=== PATIENT | female | born 1990 | race Caucasian/White ===

== ENCOUNTER 2021-10-03 17:35 | Emergency (ER) | payer SELFPAY ==
[~2021-10-03] VITALS: Ht 165.1 cm; Wt 53.0 kg
[2021-10-03] MEDS ORDERED: KETOROLAC 60MG/2ML VIAL IM ONE (20:30)
[2021-10-03 20:50] LABS: CLARITY URINE CLEAR (CLEAR); COLOR URINE YELLOW (YELLOW); KETONES URINE NEGATIVE (NEGATIVE); LEUKOCYTE ESTERASE URINE 2+ (NEGATIVE); NITRITE URINE POSITIVE (NEGATIVE); OCCULT BLOOD URINE TRACE (NEGATIVE); PROTEIN URINE NEGATIVE (NEGATIVE); SPECIFIC GRAVITY URINE 1.009 (1.005-1.030); UROBILINOGEN URINE 0.2 E.U./dL (0.2-1.0)
[2021-10-03 21:07] VITALS: BP 123/74
[2021-10-03 21:16] LABS: BASOPHILS % 0.4 % (0.0-2.0); EOSINOPHILS % 0.3 % (0.0-5.0); HEMATOCRIT. 41.1 % (36.0-48.0); HEMOGLOBIN. 13.3 g/dL (12.0-16.0); LYMPHOCYTES % 29.6 % (20.0-50.0); MEAN CORPUSCULAR HEMOGLOBIN 27.7 pg (28.0-32.0); MEAN CORPUSCULAR VOLUME 85.3 fL (81.0-99.0); MEAN PLATELET VOLUME 8.3 fl (7.4-10.4); MONOCYTES % 7.3 % (2.0-8.0); NEUTROPHILS % 62.4 % (40.0-76.0); PLATELET 268 x1000/uL (130-400); RED BLOOD CELL COUNT 4.82 mill/uL (4.2-5.4); RED CELL DISTRIBUTION WIDTH 12.9 % (11.6-14.6)
[2021-10-03 21:22] LABS: CHLORIDE 104 mEq/L (98-107)
[2021-10-03 21:23] LABS: PROTHROMBIN TIME 11.1 sec (9.6-11.0)
[2021-10-03] MEDS ORDERED: CEFTRIAXONE SODIUM 1 G/VIAL IM ONE (22:00)
[2021-10-03] MEDS ORDERED: LIDOCAINE HCL/EPINEPHRINE 1%-EPI 1:100,000 50 ML VIAL INFIL ONE (22:00)
[2021-10-03] MEDS ORDERED: IBUP-2028 MT (22:19)
[2021-10-03] MEDS ORDERED: CEFP200T13 MT (22:19)
== END 2021-10-03 23:24 | disposition home or self-care (01) ==
LOC: ER 17:35
DX: N64.4 Mastodynia (principal); N39.0 Urinary tract infection, site not specified; R53.1 Weakness; R53.83 Other fatigue
CPT/HCPCS: 36415; 71045; 80053; 81003; 81025; 85025; 85610; 86850; 86900; 86901; 96372; 99284; J0696; J1885

== ENCOUNTER 2023-05-17 16:08 | Emergency (ER) | payer MEDICAID, OTHER ==
[~2023-05-17] VITALS: Ht 167.6 cm; Wt 58.6 kg
[~2023-05-17 16:08] MED LIST: CEFP200T13 MT; IBUP-2028 MT
[2023-05-17 16:18] VITALS: TEMP 98.5; O2SAT 99
[2023-05-17 18:00] LABS: CLARITY URINE CLEAR (CLEAR); COLOR URINE YELLOW (YELLOW); GLUCOSE URINE NEGATIVE (NEGATIVE); KETONES URINE TRACE (NEGATIVE); LEUKOCYTE ESTERASE URINE NEGATIVE (NEGATIVE); NITRITE URINE NEGATIVE (NEGATIVE); OCCULT BLOOD URINE NEGATIVE (NEGATIVE); PROTEIN URINE NEGATIVE (NEGATIVE); SPECIFIC GRAVITY URINE 1.017 (1.005-1.030); UROBILINOGEN URINE 0.2 E.U./dL (0.2-1.0)
[2023-05-17 18:28] LABS: BASOPHILS % 0.4 % (0.0-2.0); EOSINOPHILS % 0.6 % (0.0-5.0); HEMATOCRIT. 40.4 % (36.0-48.0); HEMOGLOBIN. 13.4 g/dL (12.0-16.0); LYMPHOCYTES % 25.3 % (20.0-50.0); MEAN CORPUSCULAR HEMOGLOBIN 28.1 pg (28.0-32.0); MEAN CORPUSCULAR HGB CONC 33.2 g/dL (31.0-37.0); MEAN CORPUSCULAR VOLUME 84.7 fL (81.0-99.0); MEAN PLATELET VOLUME 8.5 fl (7.4-10.4); MONOCYTES % 8.1 % (2.0-8.0); NEUTROPHILS % 65.6 % (40.0-76.0); PLATELET 278 x1000/uL (130-400); RED BLOOD CELL COUNT 4.77 mill/uL (4.2-5.4); RED CELL DISTRIBUTION WIDTH 13.4 % (11.6-14.6); WHITE BLOOD COUNT 9.7 x1000/uL (4.5-11.0)
[2023-05-17 18:42] LABS: ALANINE AMINOTRANSFERASE 15 IU/L (10-49); ALBUMIN 5.1 g/dL (3.2-4.8); ASPARTATE AMINOTRANSFERASE 27 IU/L (<34); BILIRUBIN TOTAL 0.7 mg/dL (0.1-1.0); CALCIUM 9.6 mg/dL (8.7-10.4); CARBON DIOXIDE 26 mEq/L (21-32); CHLORIDE 105 mEq/L (98-107); CREATININE 0.8 mg/dL (0.6-1.0); GLUCOSE 95 mg/dL (70-105); PROTEIN TOTAL 8.3 g/dL (6.0-8.3); SODIUM 137 mEq/L (136-145); UREA NITROGEN BLOOD 14 mg/dL (9-23)
[2023-05-17 20:10] VITALS: BP 110/80; PULSE 82; RESP 18
[2023-05-17] MEDS: KETOROLAC 60MG/2ML VIAL IM ONE (20:10)
[2023-05-17] MEDS ORDERED: DOXY100C5 MT (21:18)
[2023-05-17] MEDS ORDERED: METR-167 MT (21:18)
[2023-05-17] MEDS: LIDOCAINE HCL 1% 20ML VIAL (Pyxis) INJ INFIL ONE (21:43)
[2023-05-17] MEDS: CEFTRIAXONE SODIUM 500MG VIAL IM ONE (21:43)
[2023-05-22 04:09] LABS: CHLAMYDIA TRACHOMATIS NAA Negative (Negative); NEISSERIA GONORRHOEAE NAA Negative (Negative)
== END 2023-05-17 22:25 | disposition home or self-care (01) ==
LOC: ER 16:08
DX: R10.2 Pelvic and perineal pain (principal); N89.8 Other specified noninflammatory disorders of vagina
CPT/HCPCS: 99285; 74176; 93976; 76830; 76856; 87491; 87591; 80053; 81003; 81025; 85025; 36415; 96372; J0696; J1885; J3490